=== PATIENT | female | born 1960 | race Caucasian/White ===

== ENCOUNTER 2017-05-15 01:44 | Inpatient (IN) | payer MEDICAID ==
--- NOTE | 2017-05-15 01:53 | ED Physician Chart ---
ED Chief Complaint/HPI - Patient Information Date Seen:: 05/15/17 Time Seen:: 01:45 Chief Complaint:: dizziness and vomiting History of Present Illness:: Patient had onset at 0630 yesterday morning of nausea, vomiting and dizziness. She is uncertain how many times she vomited but now she is retching only. She denies diarrhea. She denies abdominal pain. No fever. Patient receives dialysis Thursday, Thursday, Thursday. Allergies:: Allergies Allergy/AdvReac Type Severity Reaction Status Date / Time MDX PCN (penicillin) Allergy Verified 03/26/14 19:07 [PCN (penicillin)] Historian:: Patient Review:: Transfer documents Reviewed ED Review of Systems - Review of Systems General/Constitutional: No fever, No chills Skin: No skin lesions Head: No headache Eyes: No loss of vision ENT: No earache Neck: No neck pain Cardio Vascular: No chest pain Pulmonary: No SOB GI: Nausea, Vomiting Musculoskeletal: No bone or joint pain Endocrine: No polydipsia Psychiatric: No prior psych history Hematopoietic: No bruising Allergic/Immuno: No urticaria Neurological: Dizziness ED Past Medical History - Past Medical History Past Medical History: DM Family History: Diabetes Melitus Social History: Non Smoker, Care Facility Surgical History: , other (dialysis shunt) Psychiatricy History: None Medication: Reviewed Family Medical History - Family Member Mother Ethnicity: Hx Family Diabetes: Yes ED Physical Exam - Physical Examination General/Constitutional: Awake, Alert, No distress Other Gen/Cons comments:: Mildly chronically ill appearing Head: Atraumatic Eyes: Lids, conjuctiva normal, PERRL Skin: Nl inspection, No rash ENMT: External ears, nose nl, Nasal exam nl, Lips, teeth, gums nl, Oropharynx nl Neck: No nuchal rigidity Respiratory: Nl effort/Exclusion, Clear to Auscultation, No Wheeze/Rhonchi/Rales Cardio Vascular: RRR GI: No tenderness/rebounding/guarding, No organomegaly, No hernia : No CVA tenderness Extremities: Normal digits & nails ED Labs/Radiology/EKG Results - Lab Results Results: Laboratory Results - last 24 hr 05/15/17 05/15/17 01:58 01:58 WBC 9.7 RBC 3.92 Hgb 12.1 Hct 36.2 L MCV 92.3 MCH 30.9 MCHC Differential 33.5 RDW 14.2 Plt Count 222 D MPV 8.0 Neutrophils % 77.1 Lymphocytes % 17.2 L Monocytes % 5.2 Eosinophils % 0.3 Basophils % 0.2 Sodium 133 L Potassium 5.2 H Chloride 98 Carbon Dioxide 24.6 Anion Gap 15.6 BUN 75 H Creatinine 7.8 H* Est GFR ( Amer) 6.9 Est GFR (Non-Af Amer) 5.7 BUN/Creatinine Ratio 9.6 Glucose 140 H Calcium 9.0 Magnesium 2.3 - EKG Interpretations Rate & Rhythm: normal sinus rhythm with a rate of 78 [place]: normal Comments:: Low-voltage ED Septic Shock - . Is Septic Shock (SBP<90, OR Lactate>4 mmol\L) present?: No ED Reassessment (Disposition) - Reassessment Reassessment Condition:: Unchanged - Diagnosis Diagnosis:: Renal failure on dialysis; vomiting - Patient Disposition Admitted to:: Med/Surg Spoke to:: Herman Dia Admitting Medical Physician:: Pedrito Dia Condition at Disposition:: Stable, Unchanged
[2017-05-15 02:19] LABS: % BASOPHILS 0.2 % (0.0-2.0); % EOSINOPHILS 0.3 % (0.0-5.0); % LYMPHOCYTES 17.2 % (20.0-50.0); % MONOCYTES 5.2 % (2.0-10.0); % NEUTROPHILS 77.1 % (40.0-80.0); HEMATOCRIT 36.2 % (41.0-60); HEMOGLOBIN 12.1 gm/dL (12-16); MEAN CELL VOLUME 92.3 fl (81-100); MEAN CORPUSCULAR HEMOGLOBIN 30.9 pg (27.0-31.0); MEAN CORPUSCULAR HGB CONC 33.5 pg (28.0-36.0); NEUTROPHILE ABSOLUTE 7.5 Th/cmm (1.8-8.0); RED BLOOD COUNT 3.92 Mil/cmm (3.80-5.10); RED CELL DISTRIBUTION WIDTH 14.2 % (11.5-20.0); WHITE BLOOD COUNT 9.7 Th/cmm (4.8-10.8)
[2017-05-15 02:20] LABS: PLATELET COUNT 222 Th/cmm (150-400)
[2017-05-15 02:31] LABS: ANION GAP 15.6 (7.0-16.0); BUN/CREATININE RATIO 9.6; CARBON DIOXIDE 24.6 mEq/L (21.0-31.0); MAGNESIUM 2.3 mg/dL (1.9-2.7); POTASSIUM SERUM 5.2 mEq/L (3.5-5.1)
[2017-05-15 02:33] LABS: CREATININE - SERUM 7.8 mg/dL (0.6-1.2)
[2017-05-15] MEDS ORDERED: D5-0.45NS 1,000 ML IV ONE (04:01)
[2017-05-15 05:07] VITALS: BP 104/45
--- NOTE | 2017-05-15 08:15 | History and Physical ---
History of Present Illness - HPI Chief Complaint: nausea and vomiting HPI: 56 year old female who presents to [facility] from SNF for increase nausea and vomiting noted at the SNF. Patient has a previous history of diabetes mellitus type 2, anemia, ESRD on HD, obesity, hypotension, Vital Signs: Last Vital Signs Temp 98.4 F 05/15/17 03:36 Pulse 78 05/15/17 03:36 Resp 18 05/15/17 03:36 BP 104/45 05/15/17 05:06 Pulse Ox 98 05/15/17 03:36 Past Medical History Cardiovascular: Report: HTN, Hyperlipidemia Pulmonary: Report: No Pertinent Hx OPERATIONAL RISK ANALYST: Report: No Pertinent Hx Renal/: Report: Other (acute and chronic renal failure) Endocrine: Report: Diabetes Family Medical History - Family Member Mother Age: 80 Ethnicity: Living Status: Still Living Hx Family Cancer: No Hx Family Coronary Artery Disease: No Hx Family Congestive Heart Failure: No Hx Family Hypertension: No Hx Family Stroke: No Hx Family Diabetes: Yes Hx Family Seizures: No Hx Family Dementia: No Hx Family AIDS: No Hx Family HIV: No Hx Family COPD: No Hx Family Hepatitis: No Hx Family Psychiatric Problems: No Hx Family Tuberculosis: No Social History Smoke: No Alcohol: None Drugs: None Lives: Retirement - Medications Home Medications: Home Medication Medication Instructions Recorded Type Acetaminophen 650 mg PO Q6HR PRN 03/26/14 History Acetaminophen 650 mg PO Q6HR PRN 03/26/14 History Biotin/Ca Pantothenate/Folic1 1 tab PO DAILY 03/26/14 History [Nephro-Hanny] Bisacodyl [Dulcolax] 10 mg RC DAILY PRN 03/26/14 History Folic Acid 1 mg PO DAILY 03/26/14 History Insulin Glargine, Recombinan 10 unit SC HS 03/26/14 History [Lantus] Magnesium Hydroxide [Milk of 400 mg PO DAILY PRN 03/26/14 History Magnesia] Midodrine [Proamatine] 10 mg PO MWF 03/26/14 History Ondansetron Hydrochloride [Zofran] 4 mg PO Q6HR PRN 03/26/14 History Sevelamer Hydrochloride [Renagel] 2,400 mg PO TID 03/26/14 History Amino Acids/Protein Hydrolys 30 ml PO TID 05/15/17 History [Pro-Stat Sugar Free 887 ml] Cinacalcet [Sensipar] 30 mg PO DAILY 05/15/17 History Insulin Regular, Human [Humulin R] See Protocol SQ PRN PRN 05/15/17 History Mag Hydrox/Al Hydrox/Simeth 30 ml PO QID PRN 05/15/17 History [Aluminum & Magnesium Hydroxide/Simethicone 35] Timolol 0.5% Ophth Soln [Timoptic 1 drop EACH EYE HS 05/15/17 History 0.5% Ophth Soln] - Allergies Allergies/Adverse Reactions: Allergies Allergy/AdvReac Type Severity Reaction Status Date / Time Penicillins Allergy Verified 05/15/17 01:55 Review of Systems - Review of Systems Constitutional: Report: Weakness, Malaise Eyes: Report: No Significant ENT: Report: No Significant Respiratory: Report: No Significant Cardiovascular: Report: No Significant Gastrointestinal: Report: Nausea, Vomiting, Abdominal Pain Musculoskeletal: Report: No Significant Skin: Report: No Significant Neurological: Report: No Significant Physical Exam - Physical Exam HEENT: Report: Ears Nose Throat within normal limits, Pharnyx within normal limits Neck: Report: Within normal limits Cardiovascular Systems: Report: +s1/s2 noted, Regular, Rate and Rhythm Respiratory: Report: Breath Sounds are within normal limits, Clear to Auscultation of lung jason Abdomen: Report: Non-tender to palpation Back: Report: Inspection of back is within normal limits. - Assessment Assessment: nausea and vomiting acute and chronic renal failure dehydration diabetes mellitus anemia esrd on hd obesity hypertension GERD hyperlipidemia s/p cataract surgery - Plan Plan: renal consult cbc,cmp tomorrow am continue current medication.
[2017-05-15] MEDS ORDERED: INSULIN ASPART SLIDING SCALE 100 UNITS/ML UNIT SUBQ PRN (08:19)
[2017-05-15] MEDS ORDERED: ONDANSETRON HYDROCHLORIDE 4 MG PO PRN (08:19)
[2017-05-15] MEDS ORDERED: Magnesium Hydroxide (MOM) 30 mL UDC PO PRN (08:19)
[2017-05-15] MEDS ORDERED: Maalox 30 mL Cup PO PRN (08:19)
[2017-05-15] MEDS ORDERED: CA PANTOTHENATE PO SCH (09:00)
[2017-05-15] MEDS ORDERED: Non-Formulary Item 1 EA (Amino Acids/Protein Hydrolys [Pro-Stat Sugar Free Liquid] 30 ML) PO SCH (09:00)
[2017-05-15] MEDS ORDERED: FOLIC1 PO SCH (09:00)
[2017-05-15] MEDS ORDERED: BIOTIN PO SCH (09:00)
[2017-05-15] MEDS: Vitamin B Complex w/Vitamin C Tab PO SCH (10:56)
[2017-05-15] MEDS ORDERED: VTE Chemical Prophylaxis Screen/Admission MC PRN (15:43)
[2017-05-15] MEDS: Insulin Detemir 100 units/mL 10mL Vial SUBQ SCH (20:48)
--- NOTE | 2017-05-16 07:30 | General Progress Note ---
Subjective - Review of Systems Service Date: 05/16/17 Subjective: Patient is awake, alert. complains of itching to her left side. no further nausea or vomiting. Objective - Results Result Diagrams: 05/15/17 01:58 05/15/17 01:58 Recent Labs: Laboratory Last Values WBC 9.7 Th/cmm (4.8-10.8) 05/15/17 01:58 RBC 3.92 Mil/cmm (3.80-5.10) 05/15/17 01:58 Hgb 12.1 gm/dL (12-16) 05/15/17 01:58 Hct 36.2 % (41.0-60) L 05/15/17 01:58 MCV 92.3 fl (81-100) 05/15/17 01:58 MCH 30.9 pg (27.0-31.0) 05/15/17 01:58 MCHC Differential 33.5 pg (28.0-36.0) 05/15/17 01:58 RDW 14.2 % (11.5-20.0) 05/15/17 01:58 Plt Count 222 Th/cmm (150-400) D 05/15/17 01:58 MPV 8.0 fl 05/15/17 01:58 Neutrophils % 77.1 % (40.0-80.0) 05/15/17 01:58 Lymphocytes % 17.2 % (20.0-50.0) L 05/15/17 01:58 Monocytes % 5.2 % (2.0-10.0) 05/15/17 01:58 Eosinophils % 0.3 % (0.0-5.0) 05/15/17 01:58 Basophils % 0.2 % (0.0-2.0) 05/15/17 01:58 Sodium 133 mEq/L (136-145) L 05/15/17 01:58 Potassium 5.2 mEq/L (3.5-5.1) H 05/15/17 01:58 Chloride 98 mEq/L (98-107) 05/15/17 01:58 Carbon Dioxide 24.6 mEq/L (21.0-31.0) 05/15/17 01:58 Anion Gap 15.6 (7.0-16.0) 05/15/17 01:58 BUN 75 mg/dL (7-25) H 05/15/17 01:58 Creatinine 7.8 mg/dL (0.6-1.2) H* 05/15/17 01:58 Est GFR ( Amer) 6.9 ml/min (>90) 05/15/17 01:58 Est GFR (Non-Af Amer) 5.7 ml/min 05/15/17 01:58 BUN/Creatinine Ratio 9.6 05/15/17 01:58 Glucose 140 mg/dL (70-105) H 05/15/17 01:58 POC Glucose 277 MG/DL (70 - 105) H 05/15/17 20:15 Calcium 9.0 mg/dL (8.6-10.3) 05/15/17 01:58 Magnesium 2.3 mg/dL (1.9-2.7) 05/15/17 15:30 Lipase 11 U/L (11-82) 05/15/17 01:58 - Physical Exam Vitals and I&O: Vital Signs Temp 97.2 F 05/16/17 04:00 Pulse 69 05/16/17 04:00 Resp 18 05/16/17 04:00 BP 108/47 05/16/17 04:00 Pulse Ox 97 05/16/17 04:00 Intake & Output 05/15/17 05/16/17 05/16/17 18:59 06:59 18:59 Intake Total 723.333 276.667 Balance 723.333 276.667 Weight (lbs) 112.491 kg 114.305 kg Intake: Intake, IV Amount 723.333 276.667 D5-0.45NS 1,000 ml @ 50 723.333 mls/hr IV .Q20H ONE Rx#: [id number] Other: # Bowel Movements 1 Active Medications: Current Medications Acetaminophen (Tylenol) 650 mg PO Q6HR PRN PRN Reason: Mild Pain Last Admin: 05/15/17 22:09 Dose: 650 mg Al Hydrox/Mg Hydrox/Simethicone (Maalox) 30 ml PO QID PRN PRN Reason: ACID REFLUX Stop: 07/14/17 08:18 Bisacodyl (Dulcolax 10 Mg Supp) 10 mg RC DAILY PRN PRN Reason: Constipation Cinacalcet (Sensipar) 30 mg PO DAILY [facility] Stop: 07/14/17 08:59 Last Admin: 05/15/17 10:56 Dose: 30 mg Diphenhydramine HCl (Benadryl) 25 mg PO QID PRN PRN Reason: Itching Stop: 07/15/17 07:21 Folic Acid (Folate) 1 mg PO DAILY [facility] Stop: 07/14/17 08:59 Last Admin: 05/15/17 09:26 Dose: 1 mg Heparin Sodium (Porcine) (Heparin) 5,000 units SUBQ Q12HR [facility] Stop: 07/14/17 20:59 Last Admin: 05/15/17 22:09 Dose: 5,000 units Insulin Detemir (Levemir Insulin) 10 units SUBQ HS [facility] Stop: 07/14/17 20:59 Last Admin: 05/15/17 20:48 Dose: 10 units Magnesium Hydroxide (Milk Of Magnesia) 30 ml PO DAILY PRN PRN Reason: Constipation Midodrine (Proamatine) 10 mg PO MWF [facility] Stop: 07/14/17 08:59 Last Admin: 05/15/17 09:26 Dose: 10 mg Miscellaneous (Vte Chemical Prophylaxis Screen/ Admission) 1 ea MC PRN PRN PRN Reason: PROTOCOL Stop: 07/14/17 15:42 Ondansetron HCl (Zofran) 4 mg IV Q6HR PRN PRN Reason: Vomiting Stop: 07/14/17 03:02 Last Admin: 05/15/17 13:01 Dose: 4 mg Sevelamer Carbonate (Renvela) 2,400 mg PO TIDWM [facility] Stop: 07/14/17 11:59 Last Admin: 05/15/17 18:01 Dose: 2,400 mg Timolol Maleate (Timoptic 0.5% Ophth Soln) 1 drop EACH EYE [facility] Stop: 07/14/17 20:59 Last Admin: 05/15/17 20:49 Dose: 1 drop Vitamin B Complex/Vit C/Folic Acid (Vitamin B Complex W/Vitamin C) 1 tab PO DAILY [facility] Stop: 07/14/17 09:59 Last Admin: 05/15/17 10:56 Dose: 1 tab General: Alert, Oriented x3, No acute distress HEENT: Atraumatic, PERRLA Neck: Supple, JVD Cardiovascular: Regular rate, Normal S1, Normal S2 Lungs: Clear to auscultation Abdomen: Bowel sounds, Soft Extremities: no Clubbing, no Cyanosis, no Edema Neurological: Normal gait, Normal speech Skin: Rash (noted to the left side.) - Procedures Procedures: Procedures Procedure Code Date HEMODIALYSIS 39.95 03/26/14 Assessment/Plan - Problem List Patient Problems: All Active Problems End-stage renal disease (Acute) Gastritis and gastroduodenitis (Acute) K29.70 Hypertensive kidney disease with chronic kidney disease, stage 5 chronic kidney disease or end stage renal disease (Acute) I12.0 - Assessment Assessment: nausea and vomiting acute and chronic renal failure dehydration diabetes mellitus anemia esrd on hd obesity hypertension GERD hyperlipidemia s/p cataract surgery - Plan Plan: renal consult cbc,cmp tomorrow am continue current medication.
[2017-05-16] MEDS: Vitamin B Complex w/Vitamin C Tab PO SCH (09:56)
[2017-05-16 12:06] LABS: % BASOPHILS 0.7 % (0.0-2.0); % EOSINOPHILS 3.8 % (0.0-5.0); % LYMPHOCYTES 16.5 % (20.0-50.0); % MONOCYTES 3.8 % (2.0-10.0); % NEUTROPHILS 75.2 % (40.0-80.0); HEMATOCRIT 35.6 % (41.0-60); HEMOGLOBIN 11.7 gm/dL (12-16); MEAN CELL VOLUME 93.1 fl (81-100); MEAN CORPUSCULAR HEMOGLOBIN 30.7 pg (27.0-31.0); MEAN PLATELET VOLUME 8.5 fl; PLATELET COUNT 199 Th/cmm (150-400); RED BLOOD COUNT 3.82 Mil/cmm (3.80-5.10); RED CELL DISTRIBUTION WIDTH 14.1 % (11.5-20.0)
[2017-05-16 12:32] LABS: ALB/GLOB RATIO 1.1 (1.0-1.8); ANION GAP 11.9 (7.0-16.0); BILIRUBIN,TOTAL 0.5 mg/dL (0.3-1.0); BUN/CREATININE RATIO 6.8; CARBON DIOXIDE 28.5 mEq/L (21.0-31.0); PHOSPHOROUS 4.8 mg/dL (2.5-5.0); POTASSIUM SERUM 4.4 mEq/L (3.5-5.1)
[2017-05-16 12:53] LABS: CREATININE - SERUM 5.9 mg/dL (0.6-1.2)
--- NOTE | 2017-05-16 16:27 | Consultation ---
DATE OF CONSULTATION: 05/15/2017 RENAL CONSULTATION HISTORY OF PRESENT ILLNESS: A 56-year-old patient who is currently on maintenance hemodialysis here at the [facility]. Apparently, her last dialysis was Thursday. She was dialyzed subsequently and 15 minutes before the termination of dialysis, she started to have some discomfort and pain of the left arm which seems some degree of infiltration of the arms. Therefore, it was discontinued. She came back to the care home where she is a resident and subsequently complaining of nausea and vomiting, the same reason for the patient was transferred here to this facility. With an impression of dehydration, the patient was admitted to the hospital. PAST MEDICAL HISTORY: The patient having a known history of diabetes for more than 15 years and a history of hypertension, on medication; and started on dialysis 10 years ago with utilization of an AV fistula on the left upper arm. She has also associated obesity and hypertension. Other history of this patient is the presence of hyperlipidemia, gastroesophageal reflux, and diabetes. FAMILY HISTORY: Her mother is 80 years old, still living. No history of cancer, no coronary artery disease and no diabetes in the family. REVIEW OF SYSTEMS: HEENT: No complaints of headache. No episode of dizziness. CARDIOVASCULAR: Denies any history of chest pain or shortness of breath. RESPIRATORY: Negative. GASTROINTESTINAL: Nausea and vomiting from the care home. PHYSICAL EXAMINATION: VITAL SIGNS: Blood pressure is 104/45, pulse rate of 75, and respiratory rate of 18. GENERAL: Obese female who appears to be not in acute distress. CHEST: Clear to auscultation. HEART: Regular sinus. ABDOMEN: Soft. Bowel sounds are present. No organ enlargement. EXTREMITIES: No edema. MEDICATIONS: Reviewed. Tylenol, Biotin in the form of Nephro-Hanny, Dulcolax, folic acid 1 mg daily, Lantus insulin 10 units subcutaneously at bedtime, midodrine 10 mg ____, milk of magnesia, Sevelamer 2400 three times a day, cinacalcet 30 mg daily, and Regular insulin subcutaneously a.c. and at bedtime. IMPRESSION: Chronic renal failure, on maintenance hemodialysis, access with a fistula and with the presence of ____ suspected a possibility of previous infiltration of the access. Has tender area on the inner aspect of the arm where she had a previous history of puncture the access. We will continue her Sevelamer 2400 three times a day and Nephro-Hanny in this patient. We will recheck her phosphorus while she is in the hospital and her magnesium since she has an order of magnesium oxide, milk of magnesia on a p.r.n. basis. JOB# [id number]
--- NOTE | 2017-05-16 18:06 | General Progress Note ---
Subjective - Review of Systems Service Date: 05/16/17 Objective - Results Result Diagrams: 05/16/17 11:55 05/16/17 11:55 Recent Labs: Laboratory Last Values WBC 8.0 Th/cmm (4.8-10.8) 05/16/17 11:55 RBC 3.82 Mil/cmm (3.80-5.10) 05/16/17 11:55 Hgb 11.7 gm/dL (12-16) L 05/16/17 11:55 Hct 35.6 % (41.0-60) L 05/16/17 11:55 MCV 93.1 fl (81-100) 05/16/17 11:55 MCH 30.7 pg (27.0-31.0) 05/16/17 11:55 MCHC Differential 33.0 pg (28.0-36.0) 05/16/17 11:55 RDW 14.1 % (11.5-20.0) 05/16/17 11:55 Plt Count 199 Th/cmm (150-400) 05/16/17 11:55 MPV 8.5 fl 05/16/17 11:55 Neutrophils % 75.2 % (40.0-80.0) 05/16/17 11:55 Lymphocytes % 16.5 % (20.0-50.0) L 05/16/17 11:55 Monocytes % 3.8 % (2.0-10.0) 05/16/17 11:55 Eosinophils % 3.8 % (0.0-5.0) 05/16/17 11:55 Basophils % 0.7 % (0.0-2.0) 05/16/17 11:55 Sodium 135 mEq/L (136-145) L 05/16/17 11:55 Potassium 4.4 mEq/L (3.5-5.1) 05/16/17 11:55 Chloride 99 mEq/L (98-107) 05/16/17 11:55 Carbon Dioxide 28.5 mEq/L (21.0-31.0) 05/16/17 11:55 Anion Gap 11.9 (7.0-16.0) 05/16/17 11:55 BUN 40 mg/dL (7-25) H 05/16/17 11:55 Creatinine 5.9 mg/dL (0.6-1.2) H* 05/16/17 11:55 Est GFR ( Amer) 9.5 ml/min (>90) 05/16/17 11:55 Est GFR (Non-Af Amer) 7.9 ml/min 05/16/17 11:55 BUN/Creatinine Ratio 6.8 05/16/17 11:55 Glucose 204 mg/dL (70-105) H 05/16/17 11:55 POC Glucose 277 MG/DL (70 - 105) H 05/15/17 20:15 Hemoglobin A1c % 7.4 % (4.0-6.0) H 05/16/17 Unknown Calcium 9.0 mg/dL (8.6-10.3) 05/16/17 11:55 Phosphorus 4.8 mg/dL (2.5-5.0) 05/16/17 11:55 Magnesium 2.3 mg/dL (1.9-2.7) 05/15/17 15:30 Total Bilirubin 0.5 mg/dL (0.3-1.0) 05/16/17 11:55 AST 12 U/L (13-39) L 05/16/17 11:55 ALT 12 U/L (7-52) 05/16/17 11:55 Alkaline Phosphatase 81 U/L (34-104) 05/16/17 11:55 Total Protein 7.0 gm/dL (6.0-8.3) 05/16/17 11:55 Albumin 3.6 gm/dL (3.7-5.3) L 05/16/17 11:55 Globulin 3.4 gm/dL 05/16/17 11:55 Albumin/Globulin Ratio 1.1 (1.0-1.8) 05/16/17 11:55 Lipase 11 U/L (11-82) 05/15/17 01:58 - Physical Exam Vitals and I&O: Vital Signs Temp 97 F 05/16/17 16:34 Pulse 87 05/16/17 16:34 Resp 20 05/16/17 16:34 BP 118/69 05/16/17 16:34 Pulse Ox 97 05/16/17 16:34 Intake & Output 05/15/17 05/16/17 05/16/17 18:59 06:59 18:59 Intake Total 723.333 276.667 Balance 723.333 276.667 Weight (lbs) 112.491 kg 114.305 kg Intake: Intake, IV Amount 723.333 276.667 D5-0.45NS 1,000 ml @ 50 723.333 mls/hr IV .Q20H ONE Rx#: [id number] Other: # Bowel Movements 1 Active Medications: Current Medications Acetaminophen (Tylenol) 650 mg PO Q6HR PRN PRN Reason: Mild Pain Last Admin: 05/15/17 22:09 Dose: 650 mg Al Hydrox/Mg Hydrox/Simethicone (Maalox) 30 ml PO QID PRN PRN Reason: ACID REFLUX Stop: 07/14/17 08:18 Bisacodyl (Dulcolax 10 Mg Supp) 10 mg RC DAILY PRN PRN Reason: Constipation Cinacalcet (Sensipar) 30 mg PO DAILY [facility] Stop: 07/14/17 08:59 Last Admin: 05/16/17 09:56 Dose: 30 mg Diphenhydramine HCl (Benadryl) 25 mg PO QID PRN PRN Reason: Itching Stop: 07/15/17 07:21 Last Admin: 05/16/17 16:56 Dose: 25 mg Folic Acid (Folate) 1 mg PO DAILY [facility] Stop: 07/14/17 08:59 Last Admin: 05/16/17 09:55 Dose: 1 mg Heparin Sodium (Porcine) (Heparin) 5,000 units SUBQ Q12HR [facility] Stop: 07/14/17 20:59 Last Admin: 05/16/17 09:54 Dose: 5,000 units Insulin Detemir (Levemir Insulin) 10 units SUBQ HS [facility] Stop: 07/14/17 20:59 Last Admin: 05/15/17 20:48 Dose: 10 units Magnesium Hydroxide (Milk Of Magnesia) 30 ml PO DAILY PRN PRN Reason: Constipation Last Admin: 05/16/17 15:46 Dose: 30 ml Midodrine (Proamatine) 10 mg PO MWF [facility] Stop: 07/14/17 08:59 Last Admin: 05/15/17 09:26 Dose: 10 mg Miscellaneous (Vte Chemical Prophylaxis Screen/ Admission) 1 ea MC PRN PRN PRN Reason: PROTOCOL Stop: 07/14/17 15:42 Ondansetron HCl (Zofran) 4 mg IV Q6HR PRN PRN Reason: Vomiting Stop: 07/14/17 03:02 Last Admin: 05/15/17 13:01 Dose: 4 mg Sevelamer Carbonate (Renvela) 2,400 mg PO TIDWM [facility] Stop: 07/14/17 11:59 Last Admin: 05/16/17 16:56 Dose: 2,400 mg Timolol Maleate (Timoptic 0.5% Ophth Soln) 1 drop EACH EYE HS [facility] Stop: 07/14/17 20:59 Last Admin: 05/15/17 20:49 Dose: 1 drop Vitamin B Complex/Vit C/Folic Acid (Vitamin B Complex W/Vitamin C) 1 tab PO DAILY [facility] Stop: 07/14/17 09:59 Last Admin: 05/16/17 09:56 Dose: 1 tab General: Alert, Oriented x3, No acute distress HEENT: Atraumatic, PERRLA Neck: Supple, JVD Cardiovascular: Regular rate, Normal S1, Normal S2 Lungs: Clear to auscultation Abdomen: Bowel sounds, Soft Extremities: no Clubbing, no Cyanosis, no Edema Neurological: Normal gait, Normal speech Skin: Rash (noted to the left side.) - Procedures Procedures: Procedures Procedure Code Date HEMODIALYSIS 39.95 03/26/14 Assessment/Plan - Problem List Patient Problems: All Active Problems End-stage renal disease (Acute) Gastritis and gastroduodenitis (Acute) K29.70 Hypertensive kidney disease with chronic kidney disease, stage 5 chronic kidney disease or end stage renal disease (Acute) I12.0 - Plan Plan: continue smae treatment [facility]
[2017-05-16] MEDS: Insulin Detemir 100 units/mL 10mL Vial SUBQ SCH (20:10)
--- NOTE | 2017-05-17 07:13 | General Progress Note ---
Subjective - Review of Systems Service Date: 05/17/17 Subjective: Patient is awake, alert. refusing blood draws will attempt later. was seen and evaluated by nephrology. For dailysis tomorrow Objective - Results Result Diagrams: 05/16/17 11:55 05/16/17 11:55 Recent Labs: Laboratory Last Values WBC 8.0 Th/cmm (4.8-10.8) 05/16/17 11:55 RBC 3.82 Mil/cmm (3.80-5.10) 05/16/17 11:55 Hgb 11.7 gm/dL (12-16) L 05/16/17 11:55 Hct 35.6 % (41.0-60) L 05/16/17 11:55 MCV 93.1 fl (81-100) 05/16/17 11:55 MCH 30.7 pg (27.0-31.0) 05/16/17 11:55 MCHC Differential 33.0 pg (28.0-36.0) 05/16/17 11:55 RDW 14.1 % (11.5-20.0) 05/16/17 11:55 Plt Count 199 Th/cmm (150-400) 05/16/17 11:55 MPV 8.5 fl 05/16/17 11:55 Neutrophils % 75.2 % (40.0-80.0) 05/16/17 11:55 Lymphocytes % 16.5 % (20.0-50.0) L 05/16/17 11:55 Monocytes % 3.8 % (2.0-10.0) 05/16/17 11:55 Eosinophils % 3.8 % (0.0-5.0) 05/16/17 11:55 Basophils % 0.7 % (0.0-2.0) 05/16/17 11:55 Sodium 135 mEq/L (136-145) L 05/16/17 11:55 Potassium 4.4 mEq/L (3.5-5.1) 05/16/17 11:55 Chloride 99 mEq/L (98-107) 05/16/17 11:55 Carbon Dioxide 28.5 mEq/L (21.0-31.0) 05/16/17 11:55 Anion Gap 11.9 (7.0-16.0) 05/16/17 11:55 BUN 40 mg/dL (7-25) H 05/16/17 11:55 Creatinine 5.9 mg/dL (0.6-1.2) H* 05/16/17 11:55 Est GFR ( Amer) 9.5 ml/min (>90) 05/16/17 11:55 Est GFR (Non-Af Amer) 7.9 ml/min 05/16/17 11:55 BUN/Creatinine Ratio 6.8 05/16/17 11:55 Glucose 204 mg/dL (70-105) H 05/16/17 11:55 POC Glucose 194 MG/DL (70 - 105) H 05/16/17 19:49 Hemoglobin A1c % 7.4 % (4.0-6.0) H 05/16/17 Unknown Calcium 9.0 mg/dL (8.6-10.3) 05/16/17 11:55 Phosphorus 4.8 mg/dL (2.5-5.0) 05/16/17 11:55 Magnesium 2.3 mg/dL (1.9-2.7) 05/15/17 15:30 Total Bilirubin 0.5 mg/dL (0.3-1.0) 05/16/17 11:55 AST 12 U/L (13-39) L 05/16/17 11:55 ALT 12 U/L (7-52) 05/16/17 11:55 Alkaline Phosphatase 81 U/L (34-104) 05/16/17 11:55 Total Protein 7.0 gm/dL (6.0-8.3) 05/16/17 11:55 Albumin 3.6 gm/dL (3.7-5.3) L 05/16/17 11:55 Globulin 3.4 gm/dL 05/16/17 11:55 Albumin/Globulin Ratio 1.1 (1.0-1.8) 05/16/17 11:55 Lipase 11 U/L (11-82) 05/15/17 01:58 - Physical Exam Vitals and I&O: Vital Signs Temp 98.7 F 05/17/17 04:00 Pulse 72 05/17/17 04:00 Resp 18 05/17/17 04:00 BP 107/56 05/17/17 04:00 Pulse Ox 98 05/17/17 04:00 Intake & Output 05/16/17 05/17/17 05/17/17 18:59 06:59 18:59 Intake Total 1508 Balance 1508 Weight (lbs) 114.305 kg 114.759 kg Intake: Oral 1508 Other: # Voids 2 # Bowel Movements 0 Stool Characteristics Liquid Active Medications: Current Medications Acetaminophen (Tylenol) 650 mg PO Q6HR PRN PRN Reason: Mild Pain Last Admin: 05/15/17 22:09 Dose: 650 mg Al Hydrox/Mg Hydrox/Simethicone (Maalox) 30 ml PO QID PRN PRN Reason: ACID REFLUX Stop: 07/14/17 08:18 Bisacodyl (Dulcolax 10 Mg Supp) 10 mg RC DAILY PRN PRN Reason: Constipation Cinacalcet (Sensipar) 30 mg PO DAILY [facility] Stop: 07/14/17 08:59 Last Admin: 05/16/17 09:56 Dose: 30 mg Diphenhydramine HCl (Benadryl) 25 mg PO QID PRN PRN Reason: Itching Stop: 07/15/17 07:21 Last Admin: 05/16/17 16:56 Dose: 25 mg Folic Acid (Folate) 1 mg PO DAILY [facility] Stop: 07/14/17 08:59 Last Admin: 05/16/17 09:55 Dose: 1 mg Heparin Sodium (Porcine) (Heparin) 5,000 units SUBQ Q12HR [facility] Stop: 07/14/17 20:59 Last Admin: 05/16/17 20:10 Dose: 5,000 units Insulin Detemir (Levemir Insulin) 10 units SUBQ HS [facility] Stop: 07/14/17 20:59 Last Admin: 05/16/17 20:10 Dose: 10 units Magnesium Hydroxide (Milk Of Magnesia) 30 ml PO DAILY PRN PRN Reason: Constipation Last Admin: 05/16/17 15:46 Dose: 30 ml Midodrine (Proamatine) 10 mg PO MWF [facility] Stop: 07/14/17 08:59 Last Admin: 05/15/17 09:26 Dose: 10 mg Miscellaneous (Vte Chemical Prophylaxis Screen/ Admission) 1 ea [facility] PRN PRN PRN Reason: PROTOCOL Stop: 07/14/17 15:42 Ondansetron HCl (Zofran) 4 mg IV Q6HR PRN PRN Reason: Vomiting Stop: 07/14/17 03:02 Last Admin: 05/15/17 13:01 Dose: 4 mg Sevelamer Carbonate (Renvela) 2,400 mg PO TIDWM [facility] Stop: 07/14/17 11:59 Last Admin: 05/16/17 16:56 Dose: 2,400 mg Timolol Maleate (Timoptic 0.5% Ophth Soln) 1 drop EACH EYE HS [facility] Stop: 07/14/17 20:59 Last Admin: 05/16/17 20:10 Dose: 1 drop Vitamin B Complex/Vit C/Folic Acid (Vitamin B Complex W/Vitamin C) 1 tab PO DAILY [facility] Stop: 07/14/17 09:59 Last Admin: 05/16/17 09:56 Dose: 1 tab General: Alert, Oriented x3, No acute distress HEENT: Atraumatic, PERRLA Neck: Supple, JVD Cardiovascular: Regular rate, Normal S1, Normal S2 Lungs: Clear to auscultation Abdomen: Bowel sounds, Soft Extremities: no Clubbing, no Cyanosis, no Edema Neurological: Normal gait, Normal speech Skin: Rash (noted to the left side.) - Procedures Procedures: Procedures Procedure Code Date HEMODIALYSIS 39.95 03/26/14 Assessment/Plan - Problem List Patient Problems: All Active Problems End-stage renal disease (Acute) Gastritis and gastroduodenitis (Acute) K29.70 Hypertensive kidney disease with chronic kidney disease, stage 5 chronic kidney disease or end stage renal disease (Acute) I12.0 - Assessment Assessment: nausea and vomiting acute and chronic renal failure dehydration diabetes mellitus anemia esrd on hd obesity hypertension GERD hyperlipidemia s/p cataract surgery - Plan Plan: nausea and vomiting ... will order amylase, lipase, abd US, protonix PO acute and chronic renal failure ... will monitor CMP, Renal consult. diabetes mellitus ... stable anemia .. stable. hb 11.7 esrd on hd on MWF obesity hypertension ... stable. GERD .. on PPI hyperlipidemia ... stable. s/p cataract surgery
[2017-05-17 07:42] LABS: % BASOPHILS 0.9 % (0.0-2.0); % EOSINOPHILS 3.3 % (0.0-5.0); % LYMPHOCYTES 23.8 % (20.0-50.0); % MONOCYTES 7.5 % (2.0-10.0); % NEUTROPHILS 64.5 % (40.0-80.0); HEMOGLOBIN 11.1 gm/dL (12-16); MEAN CELL VOLUME 91.9 fl (81-100); MEAN CORPUSCULAR HGB CONC 32.7 pg (28.0-36.0); NEUTROPHILE ABSOLUTE 5.2 Th/cmm (1.8-8.0); PLATELET COUNT 190 Th/cmm (150-400); WHITE BLOOD COUNT 8.2 Th/cmm (4.8-10.8)
[2017-05-17 07:47] LABS: ALB/GLOB RATIO 1.1 (1.0-1.8); ANION GAP 12.2 (7.0-16.0); BILIRUBIN,TOTAL 0.5 mg/dL (0.3-1.0); BUN/CREATININE RATIO 7.3; CALCIUM SERUM 8.8 mg/dL (8.6-10.3); CARBON DIOXIDE 29.2 mEq/L (21.0-31.0); POTASSIUM SERUM 5.4 mEq/L (3.5-5.1)
[2017-05-17 08:33] LABS: CREATININE - SERUM 7.4 mg/dL (0.6-1.2)
[2017-05-17] MEDS: Pantoprazole 40 mg EC Tab PO SCH (09:54)
[2017-05-17] MEDS: Vitamin B Complex w/Vitamin C Tab PO SCH (09:54)
--- NOTE | 2017-05-17 16:56 | General Progress Note ---
Subjective - Review of Systems Service Date: 05/17/17 (c/o ear problem unable to hear on the left side) Objective - Results Result Diagrams: 05/17/17 07:13 05/17/17 07:13 Recent Labs: Laboratory Last Values WBC 8.2 Th/cmm (4.8-10.8) 05/17/17 07:13 RBC 3.70 Mil/cmm (3.80-5.10) L 05/17/17 07:13 Hgb 11.1 gm/dL (12-16) L 05/17/17 07:13 Hct 34.0 % (41.0-60) L 05/17/17 07:13 MCV 91.9 fl (81-100) 05/17/17 07:13 MCH 30.0 pg (27.0-31.0) 05/17/17 07:13 MCHC Differential 32.7 pg (28.0-36.0) 05/17/17 07:13 RDW 14.0 % (11.5-20.0) 05/17/17 07:13 Plt Count 190 Th/cmm (150-400) 05/17/17 07:13 MPV 8.0 fl 05/17/17 07:13 Neutrophils % 64.5 % (40.0-80.0) 05/17/17 07:13 Lymphocytes % 23.8 % (20.0-50.0) 05/17/17 07:13 Monocytes % 7.5 % (2.0-10.0) 05/17/17 07:13 Eosinophils % 3.3 % (0.0-5.0) 05/17/17 07:13 Basophils % 0.9 % (0.0-2.0) 05/17/17 07:13 Sodium 133 mEq/L (136-145) L 05/17/17 07:13 Potassium 5.4 mEq/L (3.5-5.1) H 05/17/17 07:13 Chloride 97 mEq/L (98-107) L 05/17/17 07:13 Carbon Dioxide 29.2 mEq/L (21.0-31.0) 05/17/17 07:13 Anion Gap 12.2 (7.0-16.0) 05/17/17 07:13 BUN 54 mg/dL (7-25) H 05/17/17 07:13 Creatinine 7.4 mg/dL (0.6-1.2) H* 05/17/17 07:13 Est GFR ( Amer) 7.3 ml/min (>90) 05/17/17 07:13 Est GFR (Non-Af Amer) 6.1 ml/min 05/17/17 07:13 BUN/Creatinine Ratio 7.3 05/17/17 07:13 Glucose 142 mg/dL (70-105) H D 05/17/17 07:13 POC Glucose 194 MG/DL (70 - 105) H 05/16/17 19:49 Hemoglobin A1c % 7.4 % (4.0-6.0) H 05/16/17 Unknown Calcium 8.8 mg/dL (8.6-10.3) 05/17/17 07:13 Phosphorus 4.8 mg/dL (2.5-5.0) 05/16/17 11:55 Magnesium 2.3 mg/dL (1.9-2.7) 05/15/17 15:30 Total Bilirubin 0.5 mg/dL (0.3-1.0) 05/17/17 07:13 AST 11 U/L (13-39) L 05/17/17 07:13 ALT 9 U/L (7-52) 05/17/17 07:13 Alkaline Phosphatase 76 U/L (34-104) 05/17/17 07:13 Total Protein 6.8 gm/dL (6.0-8.3) 05/17/17 07:13 Albumin 3.5 gm/dL (3.7-5.3) L 05/17/17 07:13 Globulin 3.3 gm/dL 05/17/17 07:13 Albumin/Globulin Ratio 1.1 (1.0-1.8) 05/17/17 07:13 Amylase 38 U/L (29-103) 05/17/17 07:13 Lipase 11 U/L (11-82) 05/15/17 01:58 - Physical Exam Vitals and I&O: Vital Signs Temp 98.7 F 05/17/17 04:00 Pulse 72 05/17/17 04:00 Resp 18 05/17/17 04:00 BP 107/56 05/17/17 04:00 Pulse Ox 98 05/17/17 04:00 Intake & Output 05/16/17 05/17/17 05/17/17 18:59 06:59 18:59 Intake Total 1508 Balance 1508 Weight (lbs) 114.305 kg 114.759 kg Intake: Oral 1508 Other: # Voids 2 # Bowel Movements 0 Stool Characteristics Liquid Liquid Active Medications: Current Medications Acetaminophen (Tylenol) 650 mg PO Q6HR PRN PRN Reason: Mild Pain Last Admin: 05/15/17 22:09 Dose: 650 mg Al Hydrox/Mg Hydrox/Simethicone (Maalox) 30 ml PO QID PRN PRN Reason: ACID REFLUX Stop: 07/14/17 08:18 Bisacodyl (Dulcolax 10 Mg Supp) 10 mg RC DAILY PRN PRN Reason: Constipation Cinacalcet (Sensipar) 30 mg PO DAILY [facility] Stop: 07/14/17 08:59 Last Admin: 05/17/17 09:54 Dose: 30 mg Diphenhydramine HCl (Benadryl) 25 mg PO QID PRN PRN Reason: Itching Stop: 07/15/17 07:21 Last Admin: 05/16/17 16:56 Dose: 25 mg Folic Acid (Folate) 1 mg PO DAILY [facility] Stop: 07/14/17 08:59 Last Admin: 05/17/17 09:54 Dose: 1 mg Heparin Sodium (Porcine) (Heparin) 5,000 units SUBQ Q12HR [facility] Stop: 07/14/17 20:59 Last Admin: 05/17/17 09:54 Dose: 5,000 units Insulin Detemir (Levemir Insulin) 10 units SUBQ HS [facility] Stop: 07/14/17 20:59 Last Admin: 05/16/17 20:10 Dose: 10 units Magnesium Hydroxide (Milk Of Magnesia) 30 ml PO DAILY PRN PRN Reason: Constipation Last Admin: 05/16/17 15:46 Dose: 30 ml Midodrine (Proamatine) 10 mg PO MWF [facility] Stop: 07/14/17 08:59 Last Admin: 05/15/17 09:26 Dose: 10 mg Miscellaneous (Vte Chemical Prophylaxis Screen/ Admission) 1 ea [facility] PRN PRN PRN Reason: PROTOCOL Stop: 07/14/17 15:42 Ondansetron HCl (Zofran) 4 mg IV Q6HR PRN PRN Reason: Vomiting Stop: 07/14/17 03:02 Last Admin: 05/15/17 13:01 Dose: 4 mg Pantoprazole Sodium (Protonix) 40 mg PO DAILY [facility] Stop: 07/16/17 08:59 Last Admin: 05/17/17 09:54 Dose: 40 mg Sevelamer Carbonate (Renvela) 2,400 mg PO TIDWM [facility] Stop: 07/14/17 11:59 Last Admin: 05/17/17 12:32 Dose: 2,400 mg Timolol Maleate (Timoptic 0.5% Ophth Soln) 1 drop EACH EYE HS [facility] Stop: 07/14/17 20:59 Last Admin: 05/16/17 20:10 Dose: 1 drop Vitamin B Complex/Vit C/Folic Acid (Vitamin B Complex W/Vitamin C) 1 tab PO DAILY [facility] Stop: 07/14/17 09:59 Last Admin: 05/17/17 09:54 Dose: 1 tab General: Alert, Oriented x3, No acute distress HEENT: Atraumatic, PERRLA Neck: Supple, JVD Cardiovascular: Regular rate, Normal S1, Normal S2 Lungs: Clear to auscultation Abdomen: Bowel sounds, Soft Extremities: no Clubbing, no Cyanosis, no Edema Neurological: Normal gait, Normal speech Skin: Rash (noted to the left side.) - Procedures Procedures: Procedures Procedure Code Date HEMODIALYSIS 39.95 03/26/14 Assessment/Plan - Problem List Patient Problems: All Active Problems End-stage renal disease (Acute) Gastritis and gastroduodenitis (Acute) K29.70 Hypertensive kidney disease with chronic kidney disease, stage 5 chronic kidney disease or end stage renal disease (Acute) I12.0 - Plan Plan: hemo mwf schedule her dialysis tomorrow stable may consider discharge planning need easr to be evluated re sensation of being plug
[2017-05-17] MEDS: Insulin Detemir 100 units/mL 10mL Vial SUBQ SCH (20:37)
[2017-05-18] MEDS: Vitamin B Complex w/Vitamin C Tab PO SCH (08:07)
[2017-05-18] MEDS: Pantoprazole 40 mg EC Tab PO SCH (08:07)
--- NOTE | 2017-05-18 08:27 | General Progress Note ---
Subjective - Review of Systems Service Date: 05/18/17 Subjective: Patient is awake, alert. refusing blood draws will attempt later. was seen and evaluated by nephrology. For dailysis tomorrow Objective - Results Result Diagrams: 05/17/17 07:13 05/17/17 07:13 Recent Labs: Laboratory Last Values WBC 8.2 Th/cmm (4.8-10.8) 05/17/17 07:13 RBC 3.70 Mil/cmm (3.80-5.10) L 05/17/17 07:13 Hgb 11.1 gm/dL (12-16) L 05/17/17 07:13 Hct 34.0 % (41.0-60) L 05/17/17 07:13 MCV 91.9 fl (81-100) 05/17/17 07:13 MCH 30.0 pg (27.0-31.0) 05/17/17 07:13 MCHC Differential 32.7 pg (28.0-36.0) 05/17/17 07:13 RDW 14.0 % (11.5-20.0) 05/17/17 07:13 Plt Count 190 Th/cmm (150-400) 05/17/17 07:13 MPV 8.0 fl 05/17/17 07:13 Neutrophils % 64.5 % (40.0-80.0) 05/17/17 07:13 Lymphocytes % 23.8 % (20.0-50.0) 05/17/17 07:13 Monocytes % 7.5 % (2.0-10.0) 05/17/17 07:13 Eosinophils % 3.3 % (0.0-5.0) 05/17/17 07:13 Basophils % 0.9 % (0.0-2.0) 05/17/17 07:13 Sodium 133 mEq/L (136-145) L 05/17/17 07:13 Potassium 5.4 mEq/L (3.5-5.1) H 05/17/17 07:13 Chloride 97 mEq/L (98-107) L 05/17/17 07:13 Carbon Dioxide 29.2 mEq/L (21.0-31.0) 05/17/17 07:13 Anion Gap 12.2 (7.0-16.0) 05/17/17 07:13 BUN 54 mg/dL (7-25) H 05/17/17 07:13 Creatinine 7.4 mg/dL (0.6-1.2) H* 05/17/17 07:13 Est GFR ( Amer) 7.3 ml/min (>90) 05/17/17 07:13 Est GFR (Non-Af Amer) 6.1 ml/min 05/17/17 07:13 BUN/Creatinine Ratio 7.3 05/17/17 07:13 Glucose 142 mg/dL (70-105) H D 05/17/17 07:13 POC Glucose 226 MG/DL (70 - 105) H 05/17/17 19:59 Hemoglobin A1c % 7.4 % (4.0-6.0) H 05/16/17 Unknown Calcium 8.8 mg/dL (8.6-10.3) 05/17/17 07:13 Phosphorus 4.8 mg/dL (2.5-5.0) 05/16/17 11:55 Magnesium 2.3 mg/dL (1.9-2.7) 05/15/17 15:30 Total Bilirubin 0.5 mg/dL (0.3-1.0) 05/17/17 07:13 AST 11 U/L (13-39) L 05/17/17 07:13 ALT 9 U/L (7-52) 05/17/17 07:13 Alkaline Phosphatase 76 U/L (34-104) 05/17/17 07:13 Total Protein 6.8 gm/dL (6.0-8.3) 05/17/17 07:13 Albumin 3.5 gm/dL (3.7-5.3) L 05/17/17 07:13 Globulin 3.3 gm/dL 05/17/17 07:13 Albumin/Globulin Ratio 1.1 (1.0-1.8) 05/17/17 07:13 Amylase 38 U/L (29-103) 05/17/17 07:13 Lipase 11 U/L (11-82) 05/15/17 01:58 - Physical Exam Vitals and I&O: Vital Signs Temp 96.7 F 05/18/17 08:00 Pulse 70 05/18/17 08:00 Resp 18 05/18/17 08:00 BP 127/58 05/18/17 08:00 Pulse Ox 98 05/18/17 08:00 Intake & Output 05/17/17 05/18/17 05/18/17 18:59 06:59 18:59 Intake Total 1409 Balance 1409 Weight (lbs) 114.759 kg 115.076 kg Intake: Oral 1409 Other: # Voids 3 1 # Bowel Movements 1 Stool Characteristics Liquid Active Medications: Current Medications Acetaminophen (Tylenol) 650 mg PO Q6HR PRN PRN Reason: Mild Pain Last Admin: 05/15/17 22:09 Dose: 650 mg Al Hydrox/Mg Hydrox/Simethicone (Maalox) 30 ml PO QID PRN PRN Reason: ACID REFLUX Stop: 07/14/17 08:18 Bisacodyl (Dulcolax 10 Mg Supp) 10 mg RC DAILY PRN PRN Reason: Constipation Cinacalcet (Sensipar) 30 mg PO DAILY [facility] Stop: 07/14/17 08:59 Last Admin: 05/18/17 08:06 Dose: Not Given Diphenhydramine HCl (Benadryl) 25 mg PO QID PRN PRN Reason: Itching Stop: 07/15/17 07:21 Last Admin: 05/16/17 16:56 Dose: 25 mg Folic Acid (Folate) 1 mg PO DAILY [facility] Stop: 07/14/17 08:59 Last Admin: 05/18/17 08:06 Dose: Not Given Heparin Sodium (Porcine) (Heparin) 5,000 units SUBQ Q12HR [facility] Stop: 07/14/17 20:59 Last Admin: 05/17/17 20:36 Dose: 5,000 units Insulin Detemir (Levemir Insulin) 10 units SUBQ HS [facility] Stop: 07/14/17 20:59 Last Admin: 05/17/17 20:37 Dose: 10 units Magnesium Hydroxide (Milk Of Magnesia) 30 ml PO DAILY PRN PRN Reason: Constipation Last Admin: 05/16/17 15:46 Dose: 30 ml Midodrine (Proamatine) 10 mg PO MWF [facility] Stop: 07/14/17 08:59 Last Admin: 05/18/17 08:06 Dose: Not Given Miscellaneous (Vte Chemical Prophylaxis Screen/ Admission) 1 ea [facility] PRN PRN PRN Reason: PROTOCOL Stop: 07/14/17 15:42 Neomycin/Polymyxin/Hydrocortisone (Cortisporin Otic Soln) 4 drop EACH EAR TID [facility] Stop: 07/17/17 08:59 Ondansetron HCl (Zofran) 4 mg IV Q6HR PRN PRN Reason: Vomiting Stop: 07/14/17 03:02 Last Admin: 05/15/17 13:01 Dose: 4 mg Pantoprazole Sodium (Protonix) 40 mg PO DAILY [facility] Stop: 07/16/17 08:59 Last Admin: 05/18/17 08:07 Dose: Not Given Sevelamer Carbonate (Renvela) 2,400 mg PO TIDWM [facility] Stop: 07/14/17 11:59 Last Admin: 05/18/17 08:06 Dose: Not Given Timolol Maleate (Timoptic 0.5% Ophth Soln) 1 drop EACH EYE HS [facility] Stop: 07/14/17 20:59 Last Admin: 05/17/17 20:38 Dose: 1 drop Vitamin B Complex/Vit C/Folic Acid (Vitamin B Complex W/Vitamin C) 1 tab PO DAILY [facility] Stop: 07/14/17 09:59 Last Admin: 05/18/17 08:07 Dose: Not Given General: Alert, Oriented x3, No acute distress HEENT: Atraumatic, PERRLA Neck: Supple, JVD Cardiovascular: Regular rate, Normal S1, Normal S2 Lungs: Clear to auscultation Abdomen: Bowel sounds, Soft Extremities: no Clubbing, no Cyanosis, no Edema Neurological: Normal gait, Normal speech Skin: Rash (noted to the left side.) - Procedures Procedures: Procedures Procedure Code Date HEMODIALYSIS 39.95 03/26/14 Assessment/Plan - Problem List Patient Problems: All Active Problems End-stage renal disease (Acute) Gastritis and gastroduodenitis (Acute) K29.70 Hypertensive kidney disease with chronic kidney disease, stage 5 chronic kidney disease or end stage renal disease (Acute) I12.0 - Assessment Assessment: nausea and vomiting otitis media b/l acute and chronic renal failure dehydration diabetes mellitus anemia esrd on hd obesity hypertension GERD hyperlipidemia s/p cataract surgery - Plan Plan: nausea and vomiting ... will order amylase, lipase, abd US, protonix PO acute and chronic renal failure ... will monitor CMP, Renal consult. otitis media b/l ... cortisporin otic drops. diabetes mellitus ... stable anemia .. stable. hb 11.7 esrd on hd on MWF obesity hypertension ... stable. GERD .. on PPI hyperlipidemia ... stable. s/p cataract surgery
[2017-05-18] MEDS: Cortisporin Otic Soln 10mL Bottle EACH EAR SCH ×2 (11:01→14:24)
--- NOTE | 2017-05-18 12:29 | Diagnostic Imaging Report ---
Abdominal ultrasound HISTORY: Nausea/vomiting The liver appears enlarged. No focal lesions are seen. There is a rather markedly dilated gallbladder. 2 intraluminal echogenic densities are seen. Despite the absence of acoustic shadowing, findings suggest probable cholelithiasis. No biliary dilatation (common bile duct equals 4 mm). The pancreas cannot be seen due to bowel gas. The right kidney measures 9.4 x 3.8 4.9 cm. To subcentimeter echogenic densities noted in the medullary region. These may be related to calculi. No hydronephrosis. There is incomplete visualization of the left kidney with no obvious focal lesions or hydronephrosis. The spleen appears somewhat enlarged. No other definite retroperitoneal or intra-abdominal abnormalities. IMPRESSION: 1. Limited exam due to patient size, body habitus, and bowel gas. 2. Findings suggesting probable cholelithiasis 3. Hepatosplenomegaly 4. 2 subcentimeter echogenic densities within the midportion of the right kidney. Calculi cannot be excluded. No hydronephrosis.
--- NOTE | 2017-05-18 17:41 | General Progress Note ---
Subjective - Review of Systems Service Date: 05/18/17 (no new complaints) Events since last encounter: clinically stable better Objective - Results Result Diagrams: 05/17/17 07:13 05/17/17 07:13 Recent Labs: Laboratory Last Values WBC 8.2 Th/cmm (4.8-10.8) 05/17/17 07:13 RBC 3.70 Mil/cmm (3.80-5.10) L 05/17/17 07:13 Hgb 11.1 gm/dL (12-16) L 05/17/17 07:13 Hct 34.0 % (41.0-60) L 05/17/17 07:13 MCV 91.9 fl (81-100) 05/17/17 07:13 MCH 30.0 pg (27.0-31.0) 05/17/17 07:13 MCHC Differential 32.7 pg (28.0-36.0) 05/17/17 07:13 RDW 14.0 % (11.5-20.0) 05/17/17 07:13 Plt Count 190 Th/cmm (150-400) 05/17/17 07:13 MPV 8.0 fl 05/17/17 07:13 Neutrophils % 64.5 % (40.0-80.0) 05/17/17 07:13 Lymphocytes % 23.8 % (20.0-50.0) 05/17/17 07:13 Monocytes % 7.5 % (2.0-10.0) 05/17/17 07:13 Eosinophils % 3.3 % (0.0-5.0) 05/17/17 07:13 Basophils % 0.9 % (0.0-2.0) 05/17/17 07:13 Sodium 133 mEq/L (136-145) L 05/17/17 07:13 Potassium 5.4 mEq/L (3.5-5.1) H 05/17/17 07:13 Chloride 97 mEq/L (98-107) L 05/17/17 07:13 Carbon Dioxide 29.2 mEq/L (21.0-31.0) 05/17/17 07:13 Anion Gap 12.2 (7.0-16.0) 05/17/17 07:13 BUN 54 mg/dL (7-25) H 05/17/17 07:13 Creatinine 7.4 mg/dL (0.6-1.2) H* 05/17/17 07:13 Est GFR ( Amer) 7.3 ml/min (>90) 05/17/17 07:13 Est GFR (Non-Af Amer) 6.1 ml/min 05/17/17 07:13 BUN/Creatinine Ratio 7.3 05/17/17 07:13 Glucose 142 mg/dL (70-105) H D 05/17/17 07:13 POC Glucose 226 MG/DL (70 - 105) H 05/17/17 19:59 Hemoglobin A1c % 7.4 % (4.0-6.0) H 05/16/17 Unknown Calcium 8.8 mg/dL (8.6-10.3) 05/17/17 07:13 Phosphorus 4.8 mg/dL (2.5-5.0) 05/16/17 11:55 Magnesium 2.3 mg/dL (1.9-2.7) 05/15/17 15:30 Total Bilirubin 0.5 mg/dL (0.3-1.0) 05/17/17 07:13 AST 11 U/L (13-39) L 05/17/17 07:13 ALT 9 U/L (7-52) 05/17/17 07:13 Alkaline Phosphatase 76 U/L (34-104) 05/17/17 07:13 Total Protein 6.8 gm/dL (6.0-8.3) 05/17/17 07:13 Albumin 3.5 gm/dL (3.7-5.3) L 05/17/17 07:13 Globulin 3.3 gm/dL 05/17/17 07:13 Albumin/Globulin Ratio 1.1 (1.0-1.8) 05/17/17 07:13 Amylase 38 U/L (29-103) 05/17/17 07:13 Lipase 11 U/L (11-82) 05/15/17 01:58 - Physical Exam Vitals and I&O: Vital Signs Temp 96.6 F 05/18/17 16:13 Pulse 81 05/18/17 16:13 Resp 18 05/18/17 16:13 BP 159/65 05/18/17 16:13 Pulse Ox 98 05/18/17 16:13 Intake & Output 05/17/17 05/18/17 05/18/17 18:59 06:59 18:59 Intake Total 1409 Balance 1409 Weight (lbs) 114.759 kg 115.076 kg 114.759 kg Intake: Oral 1409 Other: # Voids 3 1 # Bowel Movements 1 Stool Characteristics Liquid Active Medications: Current Medications Acetaminophen (Tylenol) 650 mg PO Q6HR PRN PRN Reason: Mild Pain Last Admin: 05/18/17 11:08 Dose: 650 mg Al Hydrox/Mg Hydrox/Simethicone (Maalox) 30 ml PO QID PRN PRN Reason: ACID REFLUX Stop: 07/14/17 08:18 Bisacodyl (Dulcolax 10 Mg Supp) 10 mg RC DAILY PRN PRN Reason: Constipation Cinacalcet (Sensipar) 30 mg PO DAILY [facility] Stop: 07/14/17 08:59 Last Admin: 05/18/17 08:06 Dose: Not Given Diphenhydramine HCl (Benadryl) 25 mg PO QID PRN PRN Reason: Itching Stop: 07/15/17 07:21 Last Admin: 05/16/17 16:56 Dose: 25 mg Folic Acid (Folate) 1 mg PO DAILY [facility] Stop: 07/14/17 08:59 Last Admin: 05/18/17 08:06 Dose: Not Given Heparin Sodium (Porcine) (Heparin) 5,000 units SUBQ Q12HR [facility] Stop: 07/14/17 20:59 Last Admin: 05/18/17 08:30 Dose: 5,000 units Insulin Detemir (Levemir Insulin) 10 units SUBQ HS [facility] Stop: 07/14/17 20:59 Last Admin: 05/17/17 20:37 Dose: 10 units Magnesium Hydroxide (Milk Of Magnesia) 30 ml PO DAILY PRN PRN Reason: Constipation Last Admin: 05/16/17 15:46 Dose: 30 ml Midodrine (Proamatine) 10 mg PO MWF [facility] Stop: 07/14/17 08:59 Last Admin: 05/18/17 08:06 Dose: Not Given Miscellaneous (Vte Chemical Prophylaxis Screen/ Admission) 1 ea [facility] PRN PRN PRN Reason: PROTOCOL Stop: 07/14/17 15:42 Neomycin/Polymyxin/Hydrocortisone (Cortisporin Otic Soln) 4 drop EACH EAR TID [facility] Stop: 07/17/17 08:59 Last Admin: 05/18/17 14:24 Dose: 4 drop Ondansetron HCl (Zofran) 4 mg IV Q6HR PRN PRN Reason: Vomiting Stop: 07/14/17 03:02 Last Admin: 05/15/17 13:01 Dose: 4 mg Pantoprazole Sodium (Protonix) 40 mg PO DAILY [facility] Stop: 07/16/17 08:59 Last Admin: 05/18/17 08:07 Dose: Not Given Sevelamer Carbonate (Renvela) 2,400 mg PO TIDWM [facility] Stop: 07/14/17 11:59 Last Admin: 05/18/17 12:45 Dose: Not Given Timolol Maleate (Timoptic 0.5% Ophth Soln) 1 drop EACH EYE HS [facility] Stop: 07/14/17 20:59 Last Admin: 05/17/17 20:38 Dose: 1 drop Vitamin B Complex/Vit C/Folic Acid (Vitamin B Complex W/Vitamin C) 1 tab PO DAILY [facility] Stop: 07/14/17 09:59 Last Admin: 05/18/17 08:07 Dose: Not Given General: Alert, Oriented x3, No acute distress HEENT: Atraumatic, PERRLA Neck: Supple, JVD Cardiovascular: Regular rate, Normal S1, Normal S2 Lungs: Clear to auscultation Abdomen: Bowel sounds, Soft Extremities: no Clubbing, no Cyanosis, no Edema Neurological: Normal gait, Normal speech Skin: Rash (noted to the left side.) - Procedures Procedures: Procedures Procedure Code Date HEMODIALYSIS 39.95 03/26/14 Assessment/Plan - Problem List Patient Problems: All Active Problems End-stage renal disease (Acute) Gastritis and gastroduodenitis (Acute) K29.70 Hypertensive kidney disease with chronic kidney disease, stage 5 chronic kidney disease or end stage renal disease (Acute) I12.0 - Plan Plan: hemo [facility] schedule her dialysis tomorrow stable may consider discharge planning need easr to be evluated re sensation of being plug stable hemo treatment
--- NOTE | 2017-05-19 20:37 | Discharge Summary ---
DATE OF DISCHARGE: 05/18/2017 PRELIMINARY DIAGNOSES: 1. Nausea and vomiting. 2. Acute on chronic renal failure. 3. Dehydration. 4. Diabetes mellitus. 5. Anemia. 6. End-stage renal disease, on hemodialysis. 7. Obesity. 8. Hypertension. 9. Gastroesophageal reflux disease. 10. Hyperlipidemia. 11. Status post cataract surgery. DISCHARGE DIAGNOSES: 1. Nausea and vomiting. 2. Acute on chronic renal failure. 3. Dehydration. 4. Diabetes mellitus. 5. Anemia. 6. End-stage renal disease, on hemodialysis. 7. Obesity. 8. Hypertension. 9. Gastroesophageal reflux disease. 10. Hyperlipidemia. 11. Status post cataract surgery. BRIEF HISTORY OF PRESENT ILLNESS: This is a 56-year-old female who presents to [facility] from [facility] facility for increased nausea, vomiting noted at the snf. The patient has a history of end-stage renal disease, on hemodialysis, obesity, hypertension, diabetes mellitus type 2 and anemia. Her initial lab work showed a white count of 8.0, hemoglobin 11.7, hematocrit of 35.6, platelets 199. Sodium 135, potassium 4.4, BUN 50, creatinine 5.9, slightly which is elevated but normal for her given her history of end-stage renal disease, on hemodialysis. She was subsequently admitted for further evaluation and treatment. The patient had a GI, had a Nephrology consult. Please see dictated report. During her hospital stay an ultrasound of abdomen was ordered. Please see dictated report. The patient was improved during her hospital stay. Her white count remained normal at 8.0, her liver enzymes were also normal. Amylase and lipase were within normal limits. She did not undergo dialysis during her stay at the hospital and was subsequently discharged in stable condition, was to continue her regular medications at the snf. Also, during her hospital stay it was found that she had bilateral otitis media and patient was given and ear drops for the infection. [facility]# [id number]
== END 2017-05-18 18:41 | disposition home or self-care (01) | DRG 470 ==
LOC: ER 01:44 → MSI 02:50
PROVIDERS: ADMIT Family Medicine; ATTEND Family Medicine
PROC: 5A1D70Z Performance of Urinary Filtration, Intermittent, Less than 6 Hours Per Day (ICD-10-PCS; principal; 2017-05-15)
PROC: 5A1D70Z Performance of Urinary Filtration, Intermittent, Less than 6 Hours Per Day (ICD-10-PCS; 2017-05-18)
DX: I12.0 Hypertensive chronic kidney disease with stage 5 chronic kidney disease or end stage renal disease (principal); N17.9 Acute kidney failure, unspecified; E11.22 Type 2 diabetes mellitus with diabetic chronic kidney disease; Z68.42 Body mass index [BMI] 45.0-49.9, adult; N18.6 End stage renal disease; E86.0 Dehydration; D64.9 Anemia, unspecified; K21.9 Gastro-esophageal reflux disease without esophagitis; E78.5 Hyperlipidemia, unspecified; E66.9 Obesity, unspecified; H66.93 Otitis media, unspecified, bilateral; R11.2 Nausea with vomiting, unspecified; Z88.0 Allergy status to penicillin; Z83.3 Family history of diabetes mellitus; Z99.2 Dependence on renal dialysis; Z79.4 Long term (current) use of insulin; Z98.49 Cataract extraction status, unspecified eye
CPT/HCPCS: 36415-UA; 76700-TC; 80048-TC; 80053-TC; 82150-TC; 82948-90; 83036-90; 83690-TC; 83735-TC; 84100-TC; 85025-TC; 93005; J1644; J1815; J2405; J7030; Z7610